=== PATIENT | female | born 1955 | race Caucasian/White ===

== ENCOUNTER 2022-06-24 22:50 | Inpatient (IN) ==
--- NOTE | 2022-06-24 23:42 | DR.URINEF ---
HPI Time Seen Time Seen by Provider: 06/24/22 23:29 PCP Primary Care Physician: [facility] HPI Comment HPI Comment: Pt accomanied by daughter .According to her patient has had at least 4 different antibiotics without improvement of her UTI.she was advised by her FP to bring patient to ER for evaluation .Hence the visit .pt herself ind icates that she experiences burning on urination intermittently.has some urgency and frequency ..Pt has been eating and drinking well according to daughter who is patients caregiver Complaint Chief Complaint Doctors Comments: problem with urination Chief Complaint:: pt c/o burning with urination, difficulty urinating, daughter reports pt has had 4 rounds of PO antibiotics prescribed by her PCP, states PCP's office called today and instructed her to take pt to ER d/t UTI, also c/o "thrush" in mouth COVID-19 Coronavirus risk:travel/contact w/high risk person: No Has patient experienced Coronavirus symptoms: No Reviewed Nurses Notes Reviewed: Yes Source History Provided: Patient and Family Member Mode of Arrival Mode of Arrival: Wheelchair Timing Onset of Chief Complaint: 04/24/22 Duration Duration: Since Onset Duration: Months Context History of: UTI Quality Pain is: Burning Severity Pain: Mild Inability to Void: Mild Location Pain Location: Suprapubic Associated Signs and Symptoms Associated signs and symptoms: Fever and Abdominal Pain PMH PMH Past Medical History: Yes Past Medical History: Dyslipidemia, GERD and Hypertension Past Medical History Comment: IBS Past Surgical History: Yes Surgical History: Cholecystectomy, Hysterectomy, Ortho Surgery and Tonsillectomy Past Surgical History Comment: hernia repair, bladder bx, uterine prolapse repair Family History History of Family Medical Conditions: No Social History Does patient currently use any type of tobacco product: No Have you used tobacco products in the last 12 months: No Type of Tobacco Use: None Alcohol Use: None Do you use any recreational Drugs:: No Lives With: Family Lives Where: Home Travel Risk Coronavirus risk:travel/contact w/high risk person: No Has patient experienced Coronavirus symptoms: No Infectious screening Have you traveled outside the country in the last 6 months?: No Isolation: Standard ROS Review of Systems Constitutional: Fever Eyes: No Symptoms Reported ENTM: No Symptoms Reported Respiratoy: No Symptoms Reported Cardiovascular: No Symptoms Reported Gastrointestinal/Abdominal: See HPI Genitourinary: Dysuria and Frequency Neurological: No Symptoms Reported Musculoskeletal: Joint Pain Integumentary: Dryness Hematologic/Lymphatic: No Symptoms Reported Endocrine: No Symptoms Reported Psychiatric: No Symptoms Reported PE Vital Signs Vitals: Temperature 99.1 F Pulse Rate 113 Respiratory Rate 20 Blood Pressure 133/76 O2 Sat by Pulse Oximetry 98 General General Appearance: Alert and In No Apparent Distress Head Head Exam: Other (temporal wasting cachectic ) Eyes Eye exam: Normal Appearance, PERRL and EOMI ENT ENT Exam: Mucous Membranes Dry Neck Neck Exam: Normal Inspection Chest Chest Inspection: Normal Inspection Respiratory Respiratory Exam: Normal Lung Sounds Bilat Respiratory Exam: Bilateral: Clear to Auscultation Cardiovascular Cardiovascular Exam: +S1 and +S2 Abdominal Exam Abdominal Exam: Normal Bowel Sounds, Soft and Tenderness Abdominal Tenderness: Suprapubic Extremities Extremities Exam: Normal Inspection Neurologic Neurological Exam: Alert Skin Skin Exam: Dry MDM Differential Diagnosis Differential Diagnosis: UTI Other Differential Diagnosis: sepsis,cachectic , COURSE Treatment Treatment: labs ROR Labs Reviewed Laboratory Results Reviewed?: Yes Result Diagrams: 06/24/22 23:40 06/24/22 23:40 Laboratory: WBC 9.5 X10^3/uL (3.6-10.0) 06/24/22 23:40 RBC 3.12 X10^6/uL (3.5-5.4) L 06/24/22 23:40 Hgb 8.5 g/dL (12.0-16.0) L 06/24/22 23:40 Hct 25.6 % (36.0-47.0) L 06/24/22 23:40 MCV 82.2 fL (80.0-100.0) 06/24/22 23:40 MCH 27.2 pg (27.0-34.0) 06/24/22 23:40 MCHC 33.0 g/dL (33.0-35.0) 06/24/22 23:40 RDW 36.0 % (11.6-16.5) H 06/24/22 23:40 Plt Count 254 X10^3/uL (150.0-450.0) 06/24/22 23:40 Plt Count Comment Adequate (ADEQUATE) 06/24/22 23:40 MPV 7.1 fL (7.4-11.0) L 06/24/22 23:40 Neut % (Auto) 50.6 % (42.0-75.0) 06/24/22 23:40 Lymph % (Auto) 33.9 % (21.0-51.0) 06/24/22 23:40 [place] % (Auto) 15.1 % (0.0-13.0) H 06/24/22 23:40 Eos % (Auto) 0.0 % (0.9-2.9) L 06/24/22 23:40 Baso % (Auto) 0.4 % (0.2-1.0) 06/24/22 23:40 Neut # (Auto) 4.8 x10^3/uL (2.2-4.8) 06/24/22 23:40 Lymph # (Auto) 3.2 X10^3/uL (1.3-2.9) H 06/24/22 23:40 [place] # (Auto) 1.4 x10^3/uL (0.3-0.8) H 06/24/22 23:40 Eos # (Auto) 0.0 x10^3/uL (0.0-0.2) 06/24/22 23:40 Baso # (Auto) 0.0 X10^3/uL (0.0-0.1) 06/24/22 23:40 Absolute Nucleated RBC 0.2 /100WBC 06/24/22 23:40 Plt Morphology Comment Normal (NORMAL) 06/24/22 23:40 RBC Morphology Abnormal (NORMAL) A 06/24/22 23:40 Dimorphic RBCs Present 06/24/22 23:40 Hypochromasia Slight A 06/24/22 23:40 Poikilocytosis 1+ A 06/24/22 23:40 Anisocytosis 3+ A 06/24/22 23:40 Target Cells Present 06/24/22 23:40 Ovalocytes Present 06/24/22 23:40 Will Cells Present 06/24/22 23:40 Schistocytes Present 06/24/22 23:40 Sodium 127 mmol/L (136-145) L 06/24/22 23:40 Corrected Sodium TNP 06/24/22 23:40 Potassium 5.2 mmol/L (3.5-5.1) H 06/24/22 23:40 Chloride 96 mmol/L (98-107) L 06/24/22 23:40 Carbon Dioxide 17.2 mmol/L (21-32) L 06/24/22 23:40 BUN 37 mg/dL (7-18) H 06/24/22 23:40 Creatinine 1.88 mg/dL (0.55-1.02) H 06/24/22 23:40 Est GFR (MDRD) Af Amer 34 (>60) L 06/24/22 23:40 Est GFR (MDRD) Non-Af 28 (>60) L 06/24/22 23:40 Glucose 74 mg/dL (65-99) 06/24/22 23:40 Lactic Acid 0.9 mmol/L (0.4-2.0) 06/24/22 23:40 Calcium 7.4 mg/dL (8.5-10.1) L 06/24/22 23:40 Corrected Calcium 8.6 mg/dL (8.5-10.1) 06/24/22 23:40 Total Bilirubin 0.40 mg/dL (0.2-1.0) 06/24/22 23:40 AST 42 Units/L (15-37) H 06/24/22 23:40 ALT 39 Units/L (12-78) 06/24/22 23:40 Alkaline Phosphatase 189 Units/L (46-116) H 06/24/22 23:40 Total Protein 5.9 g/dL (6.4-8.2) L 06/24/22 23:40 Albumin 2.5 g/dL (3.4-5.0) L 06/24/22 23:40 Globulin 3.4 g/dL (2.5-4.5) 06/24/22 23:40 Albumin/Globulin Ratio 0.7 Ratio (1.1-2.1) L 06/24/22 23:40 Specimen Type Clean catch urine 06/24/22 23:20 Urine Color Yellow (YELLOW) 06/24/22 23:20 Urine Appearance Clear (CLEAR) 06/24/22 23: Urine pH 6.0 (5.0 - 8.0) 06/24/22 23:20 Ur Specific [place] 1.015 (1.000-1.030) 06/24/22 23:20 Urine Protein 2+ (NEGATIVE) 06/24/22 23:20 Urine Glucose (UA) Negative (NEGATIVE) 06/24/22 23:20 Urine Ketones Negative (NEGATIVE) 06/24/22 23:20 Urine Blood 3+ (NEGATIVE) 06/24/22 23:20 Urine Nitrite Negative (NEGATIVE) 06/24/22 23:20 Urine Bilirubin 1+ (NEGATIVE) 06/24/22 23:20 Urine Urobilinogen Normal (NORMAL) 06/24/22 23:20 Ur Leukocyte Esterase 2+ (NEGATIVE) 06/24/22 23:20 Urine RBC 5-10 /HPF (0-3) A 06/24/22 23:20 Urine WBC 30-50 /HPF (0-5) A 06/24/22 23:20 Ur Squamous Epith Cells Few /HPF (NEGATIVE) 06/24/22 23:20 Urine Bacteria 1+ /HPF (NEGATIVE) 06/24/22 23:20 Ur Culture Indicated? Yes/culture set up 06/24/22 23:20 Opioid Opioid Risk Tool Age ( box if 16-45): No Total: 0 Total Score Risk Category: Low Risk Copyright: Quintin MARTÍNEZ predicting aberrant behaviors Discharge Plan Diagnosis Discharge Problem: Acute UTI, Acute hyponatremia, Acute renal failure, Anemia, Cachexia Discharge Plan Patient Disposition: 09 ADMITTED INPATIENT Condition: Stable Prescriptions: Continued simvastatin 10 mg tablet 1 tab PO QPM pramipexole 0.25 mg tablet 1 tab PO QPM Discontinued Elmiron 100 mg capsule 1 cap PO TID tizanidine 4 mg tablet 1 tab PO BID sucralfate 1 gram tablet 1 tab PO TID Label Comments: [NO ORIGINAL SIG] ondansetron HCl 4 mg tablet 1 tab PO Q8H PRN cyproheptadine 4 mg tablet 1 tab PO BID hydrocodone-acetaminophen 7.5-325 mg tablet 1 tab PO QID PRN pantoprazole 40 mg tablet,delayed release (DR/EC) 1 tab PO BID hydrochlorothiazide 25 mg tablet 1 tab PO DAILY Label Comments: [NO ORIGINAL SIG] levocetirizine 5 mg tablet 1 tab PO QDAY Health Concerns: Post Hospitalization: new medications and changes needed to prevent readmission or further decline. Pt educated and given instructions on all concerns. Plan of Treatment: Continue with present treatment and follow up plan. Pt is to keep follow up appointment as instructed and take medications as ordered. Orders to Discharge Patient Discharge Orders: Discharge (Routine); Ordered 06/25/22 Ordered By: Isaiah Doad Transfer (Routine); Ordered 06/25/22 Ordered By: Isaiah Chong Follow ups/Referrals Follow ups/Referrals: NFD,None [Primary Care Provider] - 3 days Instructions Stand Alone Forms: [facility], Patient Portal, Social Distancing ADDITIONAL NOTES Additional Notes Additional Notes: anemia ,stage 4 renal failure,hyperkalemia ,uti,hyponatremia,cachexia .spoke with Dr Nicholas agreed to admit patient
[2022-06-25 00:04] LABS: HEMOGLOBIN 8.5 g/dL (12.0-16.0)
[2022-06-25 00:05] LABS: BILIRUBIN,URINE 1+ (NEGATIVE); BLOOD/HEMOGLOBIN,URINE 3+ (NEGATIVE); GLUCOSE, URINE NEGATIVE (NEGATIVE); KETONES,URINE NEGATIVE (NEGATIVE); LEUKOCYTE ESTERASE ,URINE 2+ (NEGATIVE); NITRITES,URINE NEGATIVE (NEGATIVE); PROTEIN,URINE 2+ (NEGATIVE); UROBILINOGEN,URINE NORMAL (NORMAL)
[2022-06-25 00:07] LABS: BASOPHILS % (AUTO) 0.4 % (0.2-1.0); HEMATOCRIT 25.6 % (36.0-47.0); LYMPHOCYTES # (AUTO) 3.2 X10^3/uL (1.3-2.9); LYMPHOCYTES % (AUTO) 33.9 % (21.0-51.0); MEAN CORPUSCULAR HEMOGLOBIN 27.2 pg (27.0-34.0); MEAN CORPUSCULAR VOLUME 82.2 fL (80.0-100.0); MEAN PLATELET VOLUME 7.1 fL (7.4-11.0); MONOCYTES # (AUTO) 1.4 x10^3/uL (0.3-0.8); MONOCYTES % (AUTO) 15.1 % (0.0-13.0); NEUTROPHILS # (AUTO) 4.8 x10^3/uL (2.2-4.8); NEUTROPHILS % (AUTO) 50.6 % (42.0-75.0); RED BLOOD COUNT 3.12 X10^6/uL (3.5-5.4); WHITE BLOOD COUNT 9.5 X10^3/uL (3.6-10.0)
[2022-06-25 00:14] LABS: ALANINE AMINOTRANSFERASE 39 Units/L (12-78); ALBUMIN 2.5 g/dL (3.4-5.0); ALKALINE PHOSPHATASE 189 Units/L (46-116); ASPARTATE AMINO TRANSFERASE 42 Units/L (15-37); BLOOD UREA NITROGEN 37 mg/dL (7-18); CALCIUM 7.4 mg/dL (8.5-10.1); CARBON DIOXIDE 17.2 mmol/L (21-32); CHLORIDE 96 mmol/L (98-107); COR CA(FOR HYPOALB) 8.6 mg/dL (8.5-10.1); CREATININE 1.88 mg/dL (0.55-1.02); SODIUM 127 mmol/L (136-145); TOTAL PROTEIN 5.9 g/dL (6.4-8.2); eGFR NON BLACK RACES 28 (>60)
[2022-06-25 00:15] LABS: APPEARANCE,URINE CLEAR (CLEAR); COLOR,URINE YELLOW (YELLOW)
[2022-06-25 00:16] LABS: BACTERIA,URINE 1+ /HPF (NEGATIVE); SQUAMOUS EPITHELIAL CELL,UR FEW /HPF (NEGATIVE)
[2022-06-25 00:17] LABS: LACTIC ACID 0.9 mmol/L (0.4-2.0)
[2022-06-25 00:30] LABS: PLATELET MORPHOLOGY COMMENT NORMAL (NORMAL)
[2022-06-25] MEDS ORDERED: NS 1,000 ML IV 1,000 ML IV ONE ×2 (00:30→01:24)
[2022-06-25 00:31] LABS: ANISOCYTOSIS 3+; BURR CELLS PRESENT; HYPOCHROMASIA SLIGHT; OVALOCYTES PRESENT; POIKILOCYTOSIS 1+; SCHISTOCYTES PRESENT; TARGET CELLS PRESENT
[2022-06-25] MEDS ORDERED: NS 1,000 ML IV 1,000 ML ONE (00:32)
[2022-06-25 02:09] VITALS: BMI 19.8
[2022-06-25] MEDS: MACROBID CAP 100 MG EXT REL PO SCH ×2 (02:24→10:13)
[2022-06-25 06:18] LABS: BASOPHILS % (AUTO) 0.4 % (0.2-1.0); LYMPHOCYTES # (AUTO) 1.2 X10^3/uL (1.3-2.9); LYMPHOCYTES % (AUTO) 22.4 % (21.0-51.0); MEAN CORPUSCULAR HEMOGLOBIN 27.4 pg (27.0-34.0); MEAN CORPUSCULAR VOLUME 83.2 fL (80.0-100.0); MEAN PLATELET VOLUME 7.1 fL (7.4-11.0); MONOCYTES # (AUTO) 0.7 x10^3/uL (0.3-0.8); MONOCYTES % (AUTO) 13.2 % (0.0-13.0); NEUTROPHILS # (AUTO) 3.4 x10^3/uL (2.2-4.8); RED BLOOD COUNT 2.39 X10^6/uL (3.5-5.4); RED CELL DISTRIBUTION WIDTH 36.4 % (11.6-16.5); WHITE BLOOD COUNT 5.4 X10^3/uL (3.6-10.0)
[2022-06-25 06:19] LABS: HEMATOCRIT 19.9 % (36.0-47.0); HEMOGLOBIN 6.5 g/dL (12.0-16.0)
[2022-06-25 06:28] LABS: ALANINE AMINOTRANSFERASE 26 Units/L (12-78); ALBUMIN 1.7 g/dL (3.4-5.0); ALKALINE PHOSPHATASE 130 Units/L (46-116); ASPARTATE AMINO TRANSFERASE 30 Units/L (15-37); BLOOD UREA NITROGEN 29 mg/dL (7-18); CALCIUM 6.4 mg/dL (8.5-10.1); CARBON DIOXIDE 15.2 mmol/L (21-32); CHLORIDE 105 mmol/L (98-107); COR CA(FOR HYPOALB) 8.2 mg/dL (8.5-10.1); CREATININE 1.38 mg/dL (0.55-1.02); SODIUM 132 mmol/L (136-145); TOTAL PROTEIN 4.3 g/dL (6.4-8.2); eGFR NON BLACK RACES 40 (>60)
[2022-06-25 06:51] LABS: ANISOCYTOSIS 3+; BURR CELLS PRESENT; OVALOCYTES PRESENT; PLATELET MORPHOLOGY COMMENT NORMAL (NORMAL); POIKILOCYTOSIS 1+; SCHISTOCYTES PRESENT; TARGET CELLS PRESENT
[2022-06-25] MEDS ORDERED: MERREM VIAL IVP SCH (12:00)
[2022-06-25] MEDS ORDERED: PHARMACY CONSULT - VANCOMYCIN XX SCH (12:00)
[2022-06-25] MEDS: MERREM PREMIX IV 500 MG 500 MG/50 ML BAG IV SCH ×2 (12:30→20:48)
[2022-06-25] MEDS ORDERED: VANCOMYCIN IV *PREMIX 750 mg/150 ML BAG 750 MG/150 ML PIGGYBACK IV SCH (13:00)
[2022-06-25] MEDS: ZOFRAN INJ 4 MG VIAL IVP PRN (13:41)
[2022-06-25] MEDS: PERIACTIN TAB 4 MG PO SCH ×2 (13:42→20:40)
[2022-06-25] MEDS: PROTONIX TAB 40 MG PO SCH ×2 (13:42→20:39)
[2022-06-25] MEDS: FOLIC ACID TAB 1 MG PO SCH (13:43)
[2022-06-25] MEDS ORDERED: NS 100 ML IV 100 ML ONE ×2 (14:46→17:37)
[2022-06-25] MEDS ORDERED: BUTT CREAM (COMPOUND) TOP PRN (15:05)
[2022-06-25] MEDS ORDERED: BUTT CREAM (COMPOUND) ONE (15:08)
[2022-06-25] MEDS: MIRAPEX TAB 0.25 MG PO SCH (20:39)
[2022-06-25] MEDS: NORCO 7.5/325 MG TAB PO PRN (20:40)
[2022-06-25] MEDS: ZOCOR TAB 10 MG PO SCH (20:40)
[2022-06-25] MEDS ORDERED: NS 50 ML IV 50 ML IV ONE (20:40)
[2022-06-25] MEDS ORDERED: MERREM VIAL ONE (20:41)
[2022-06-25 21:58] LABS: HEMATOCRIT 33.6 % (36.0-47.0)
[2022-06-25 22:00] LABS: HEMOGLOBIN 11.3 g/dL (12.0-16.0)
[2022-06-25] MEDS: NYSTATIN SUSP PO SCH (23:48)
[2022-06-26 06:17] LABS: BASOPHILS % (AUTO) 0.2 % (0.2-1.0); HEMATOCRIT 31.5 % (36.0-47.0); HEMOGLOBIN 10.9 g/dL (12.0-16.0); LYMPHOCYTES # (AUTO) 1.2 X10^3/uL (1.3-2.9); LYMPHOCYTES % (AUTO) 18.6 % (21.0-51.0); MEAN CORPUSCULAR HEMOGLOBIN 28.6 pg (27.0-34.0); MEAN CORPUSCULAR HGB CONC 34.5 g/dL (33.0-35.0); MEAN CORPUSCULAR VOLUME 82.9 fL (80.0-100.0); MEAN PLATELET VOLUME 6.8 fL (7.4-11.0); MONOCYTES # (AUTO) 1.1 x10^3/uL (0.3-0.8); MONOCYTES % (AUTO) 16.4 % (0.0-13.0); NEUTROPHILS # (AUTO) 4.2 x10^3/uL (2.2-4.8); NEUTROPHILS % (AUTO) 64.8 % (42.0-75.0); RED CELL DISTRIBUTION WIDTH 28.7 % (11.6-16.5); WHITE BLOOD COUNT 6.5 X10^3/uL (3.6-10.0)
[2022-06-26 06:31] LABS: ALANINE AMINOTRANSFERASE 27 Units/L (12-78); ALKALINE PHOSPHATASE 154 Units/L (46-116); ASPARTATE AMINO TRANSFERASE 31 Units/L (15-37); BLOOD UREA NITROGEN 19 mg/dL (7-18); CALCIUM 6.9 mg/dL (8.5-10.1); CARBON DIOXIDE 15.1 mmol/L (21-32); CHLORIDE 109 mmol/L (98-107); COR CA(FOR HYPOALB) 8.5 mg/dL (8.5-10.1); CREATININE 0.92 mg/dL (0.55-1.02); SODIUM 134 mmol/L (136-145); eGFR NON BLACK RACES > 60 (>60)
[2022-06-26 06:59] LABS: ANISOCYTOSIS 3+; BURR CELLS 1+; OVALOCYTES SLIGHT; PLATELET MORPHOLOGY COMMENT NORMAL (NORMAL); POIKILOCYTOSIS 1+; TARGET CELLS 1+
[2022-06-26] MEDS: ZOFRAN INJ 4 MG VIAL IVP PRN ×3 (08:33→21:26)
[2022-06-26] MEDS: PROTONIX TAB 40 MG PO SCH ×2 (08:33→21:16)
[2022-06-26] MEDS: MERREM VIAL 500 MG in NS 50 ML IV 50 ML IV SCH ×2 (08:33→21:27)
[2022-06-26] MEDS: PERIACTIN TAB 4 MG PO SCH ×2 (08:34→21:16)
[2022-06-26] MEDS: NYSTATIN SUSP PO SCH ×4 (08:34→21:17)
[2022-06-26] MEDS: FOLIC ACID TAB 1 MG PO SCH (08:34)
[2022-06-26] MEDS ORDERED: VANCOMYCIN IV *PREMIX 750 mg/150 ML BAG 750 MG/150 ML PIGGYBACK IV SCH (09:00)
[2022-06-26] MEDS ORDERED: NS 250 ML IV 250 ML IV ONE (09:22)
[2022-06-26] MEDS: NORCO 7.5/325 MG TAB PO PRN ×2 (09:45→21:26)
[2022-06-26] MEDS: TOPROL XL PO SCH (09:50)
[2022-06-26] MEDS ORDERED: NS 50 ML IV 0 ML IV ONE (20:59)
[2022-06-26] MEDS: MIRAPEX TAB 0.25 MG PO SCH (21:16)
[2022-06-26] MEDS: ZOCOR TAB 10 MG PO SCH (21:17)
[2022-06-27 06:15] LABS: BASOPHILS % (AUTO) 0.2 % (0.2-1.0); HEMATOCRIT 34.9 % (36.0-47.0); HEMOGLOBIN 11.7 g/dL (12.0-16.0); LYMPHOCYTES # (AUTO) 1.5 X10^3/uL (1.3-2.9); LYMPHOCYTES % (AUTO) 19.6 % (21.0-51.0); MEAN CORPUSCULAR HGB CONC 33.6 g/dL (33.0-35.0); MEAN CORPUSCULAR VOLUME 83.5 fL (80.0-100.0); MONOCYTES # (AUTO) 1.6 x10^3/uL (0.3-0.8); MONOCYTES % (AUTO) 21.2 % (0.0-13.0); NEUTROPHILS # (AUTO) 4.4 x10^3/uL (2.2-4.8); RED BLOOD COUNT 4.18 X10^6/uL (3.5-5.4); RED CELL DISTRIBUTION WIDTH 30.1 % (11.6-16.5); WHITE BLOOD COUNT 7.5 X10^3/uL (3.6-10.0)
[2022-06-27 06:20] LABS: BLOOD UREA NITROGEN 11 mg/dL (7-18); CALCIUM 7.1 mg/dL (8.5-10.1); CARBON DIOXIDE 15.7 mmol/L (21-32); CHLORIDE 109 mmol/L (98-107); CREATININE 0.76 mg/dL (0.55-1.02); SODIUM 138 mmol/L (136-145); eGFR NON BLACK RACES > 60 (>60)
[2022-06-27 06:57] LABS: BAND NEUTROPHILS % 1 % (0-10); PLATELET MORPHOLOGY COMMENT NORMAL (NORMAL)
[2022-06-27 06:58] LABS: ANISOCYTOSIS 3+; POIKILOCYTOSIS 1+; TARGET CELLS 1+
[2022-06-27 06:59] LABS: BURR CELLS 1+; OVALOCYTES SLIGHT; SCHISTOCYTES SLIGHT
[2022-06-27] MEDS: MERREM VIAL 500 MG in NS 50 ML IV 50 ML IV SCH ×2 (09:19→21:11)
[2022-06-27] MEDS: PROTONIX TAB 40 MG PO SCH ×2 (09:24→21:10)
[2022-06-27] MEDS: NYSTATIN SUSP PO SCH ×4 (09:24→21:11)
[2022-06-27] MEDS: TOPROL XL PO SCH (09:24)
[2022-06-27] MEDS: PERIACTIN TAB 4 MG PO SCH ×2 (09:24→21:10)
[2022-06-27] MEDS: FOLIC ACID TAB 1 MG PO SCH (09:24)
[2022-06-27] MEDS: ZOFRAN INJ 4 MG VIAL IVP PRN ×2 (10:00→17:43)
[2022-06-27] MEDS: NORCO 7.5/325 MG TAB PO PRN ×2 (10:16→17:43)
[2022-06-27 11:57] LABS: ALANINE AMINOTRANSFERASE 31 Units/L (12-78); ALBUMIN 2.1 g/dL (3.4-5.0); ALKALINE PHOSPHATASE 165 Units/L (46-116); ASPARTATE AMINO TRANSFERASE 29 Units/L (15-37); COR CA(FOR HYPOALB) 8.6 mg/dL (8.5-10.1); TOTAL PROTEIN 5.4 g/dL (6.4-8.2)
--- NOTE | 2022-06-27 15:23 | RAD ---
HISTORYLT SHOULDER PAIN.brCLEARANCE FOR PHYS THERAPY Relevant Clinical InformationSTUDYSHOULDER, LEFTCOMPARISONNoneFINDINGSThere is a fracture at the distal and of the clavicle. There is lucency in this area raising concern for a pathologic fracture. There is potentially a lucency in the scapula as well.IMPRESSION1. Fracture in the distal clavicle. 2. Question metastatic bone disease. Consider correlation with whole-body bone scan.Electronically signed by: Brennan Vidales (Jun 27, 2022 15:20:49)
[2022-06-27] MEDS: MIRAPEX TAB 0.25 MG PO SCH (21:10)
[2022-06-27] MEDS: ZOCOR TAB 10 MG PO SCH (21:10)
[2022-06-28 06:19] LABS: BASOPHILS % (AUTO) 0.5 % (0.2-1.0); HEMATOCRIT 35.3 % (36.0-47.0); HEMOGLOBIN 11.9 g/dL (12.0-16.0); LYMPHOCYTES # (AUTO) 2.1 X10^3/uL (1.3-2.9); LYMPHOCYTES % (AUTO) 30.7 % (21.0-51.0); MEAN CORPUSCULAR HEMOGLOBIN 28.4 pg (27.0-34.0); MEAN CORPUSCULAR HGB CONC 33.6 g/dL (33.0-35.0); MEAN CORPUSCULAR VOLUME 84.6 fL (80.0-100.0); MEAN PLATELET VOLUME 6.9 fL (7.4-11.0); MONOCYTES # (AUTO) 1.5 x10^3/uL (0.3-0.8); MONOCYTES % (AUTO) 21.8 % (0.0-13.0); NEUTROPHILS # (AUTO) 3.2 x10^3/uL (2.2-4.8); RED BLOOD COUNT 4.18 X10^6/uL (3.5-5.4); RED CELL DISTRIBUTION WIDTH 30.6 % (11.6-16.5); WHITE BLOOD COUNT 6.7 X10^3/uL (3.6-10.0)
[2022-06-28 07:00] LABS: ALANINE AMINOTRANSFERASE 29 Units/L (12-78); ALBUMIN 2.1 g/dL (3.4-5.0); ALKALINE PHOSPHATASE 169 Units/L (46-116); ASPARTATE AMINO TRANSFERASE 41 Units/L (15-37); BLOOD UREA NITROGEN 10 mg/dL (7-18); CALCIUM 7.1 mg/dL (8.5-10.1); CARBON DIOXIDE 17.3 mmol/L (21-32); CHLORIDE 107 mmol/L (98-107); COR CA(FOR HYPOALB) 8.6 mg/dL (8.5-10.1); CREATININE 0.69 mg/dL (0.55-1.02); SODIUM 135 mmol/L (136-145); TOTAL PROTEIN 5.5 g/dL (6.4-8.2); eGFR NON BLACK RACES > 60 (>60)
[2022-06-28 07:43] LABS: ANISOCYTOSIS 3+; PLATELET MORPHOLOGY COMMENT NORMAL (NORMAL)
[2022-06-28 07:44] LABS: POIKILOCYTOSIS 1+
[2022-06-28 07:46] LABS: BURR CELLS 1+; OVALOCYTES SLIGHT; SCHISTOCYTES SLIGHT; TARGET CELLS 1+
[2022-06-28] MEDS ORDERED: PHARMACY COMMENT IV NR (08:30)
[2022-06-28] MEDS: MERREM VIAL 500 MG in NS 50 ML IV 50 ML IV SCH ×2 (09:20→21:08)
[2022-06-28] MEDS: ZOFRAN INJ 4 MG VIAL IVP PRN ×2 (09:25→21:52)
[2022-06-28] MEDS: PROTONIX TAB 40 MG PO SCH ×2 (09:29→21:07)
[2022-06-28] MEDS: PERIACTIN TAB 4 MG PO SCH ×2 (09:29→21:07)
[2022-06-28] MEDS: FOLIC ACID TAB 1 MG PO SCH (09:30)
[2022-06-28] MEDS: TOPROL XL PO SCH (09:30)
[2022-06-28] MEDS: NORCO 7.5/325 MG TAB PO PRN ×3 (09:30→22:29)
[2022-06-28] MEDS: NYSTATIN SUSP PO SCH ×4 (09:31→21:07)
[2022-06-28] MEDS: NS IV SCH ×3 (12:23→21:48)
[2022-06-28] MEDS: TOBRAMYCIN SULFATE IV SCH ×3 (12:23→21:48)
--- NOTE | 2022-06-28 14:50 | NM ---
BONE SCAN WHOLE BODYCLINICAL INDICATION: FRACTURE DISTAL CLAVICLE, LEFT, RAD REPORT RECOMMENDS WHOLE BODY BONE SCANPROCEDURE: Approximately 2-4 hours following intravenous administration of 21.7 mCi of [id number], whole body delayed planar images were obtained from the anterior and posterior projections.COMPARISON:NoneFINDINGS:There is normal by distribution of the radiotracer within the axial and appendicular skeleton. Focal uptake in the region of the distal left clavicle and shoulder consistent with patient's known fracture.There is normal by distribution of the radiotracer within the genitourinary system and soft tissues.IMPRESSION:1.No evidence of metastatic disease.Electronically signed by: JACQUES MARIA (Jun 28, 2022 14:49:26)
[2022-06-28] MEDS: MIRAPEX TAB 0.25 MG PO SCH (21:07)
[2022-06-28] MEDS: ZOCOR TAB 10 MG PO SCH (21:07)
[2022-06-29] MEDS ORDERED: PHARMACY COMMENT IV NR ×2 (05:30→07:30)
[2022-06-29 06:32] LABS: BASOPHILS % (AUTO) 0.4 % (0.2-1.0); HEMATOCRIT 32.3 % (36.0-47.0); HEMOGLOBIN 10.8 g/dL (12.0-16.0); LYMPHOCYTES # (AUTO) 1.4 X10^3/uL (1.3-2.9); LYMPHOCYTES % (AUTO) 28.4 % (21.0-51.0); MEAN CORPUSCULAR HEMOGLOBIN 28.4 pg (27.0-34.0); MEAN CORPUSCULAR HGB CONC 33.3 g/dL (33.0-35.0); MEAN CORPUSCULAR VOLUME 85.3 fL (80.0-100.0); MEAN PLATELET VOLUME 7.2 fL (7.4-11.0); MONOCYTES % (AUTO) 19.9 % (0.0-13.0); NEUTROPHILS # (AUTO) 2.5 x10^3/uL (2.2-4.8); NEUTROPHILS % (AUTO) 51.3 % (42.0-75.0); RED BLOOD COUNT 3.79 X10^6/uL (3.5-5.4); RED CELL DISTRIBUTION WIDTH 29.7 % (11.6-16.5)
[2022-06-29 06:34] LABS: ALANINE AMINOTRANSFERASE 25 Units/L (12-78); ALBUMIN 1.8 g/dL (3.4-5.0); ALKALINE PHOSPHATASE 141 Units/L (46-116); ASPARTATE AMINO TRANSFERASE 39 Units/L (15-37); BLOOD UREA NITROGEN 7 mg/dL (7-18); CALCIUM 7.2 mg/dL (8.5-10.1); CARBON DIOXIDE 20.9 mmol/L (21-32); CHLORIDE 108 mmol/L (98-107); CREATININE 0.66 mg/dL (0.55-1.02); SODIUM 136 mmol/L (136-145); TOTAL PROTEIN 4.7 g/dL (6.4-8.2); eGFR NON BLACK RACES > 60 (>60)
[2022-06-29 07:45] LABS: PLATELET MORPHOLOGY COMMENT NORMAL (NORMAL)
[2022-06-29 07:46] LABS: ANISOCYTOSIS 3+; BURR CELLS 1+; OVALOCYTES SLIGHT; POIKILOCYTOSIS 1+; SCHISTOCYTES SLIGHT; TARGET CELLS 1+
[2022-06-29 07:47] LABS: CREATININE 0.66 mg/dL (0.55-1.02)
[2022-06-29 07:51] LABS: TOBRAMYCIN,TROUGH 2.3 ug/mL (0-2)
[2022-06-29] MEDS: ZOFRAN INJ 4 MG VIAL IVP PRN ×2 (08:48→19:42)
[2022-06-29] MEDS: TOPROL XL PO SCH (08:48)
[2022-06-29] MEDS: MERREM VIAL 500 MG in NS 50 ML IV 50 ML IV SCH ×2 (08:48→21:06)
[2022-06-29] MEDS: PROTONIX TAB 40 MG PO SCH ×2 (08:49→21:06)
[2022-06-29] MEDS: FOLIC ACID TAB 1 MG PO SCH (08:49)
[2022-06-29] MEDS: PERIACTIN TAB 4 MG PO SCH ×2 (08:49→21:06)
[2022-06-29] MEDS: NORCO 7.5/325 MG TAB PO PRN ×3 (08:52→22:20)
[2022-06-29] MEDS: TOBRAMYCIN SULFATE IV SCH ×2 (10:37→21:07)
[2022-06-29] MEDS: NS IV SCH ×2 (10:37→21:07)
[2022-06-29] MEDS: NYSTATIN SUSP PO SCH ×4 (11:54→21:07)
--- NOTE | 2022-06-29 16:08 | PCM.PROG ---
Progress Note Progress Note for Day of Date of Exam: 06/29/22 Subjective Subjective: Patient reports he is doing well this morning. She does asked to be able to take her tizanidine at bedtime so I will order that for her. 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 Her primary care physician Dr. Fran Nicholas which is to treat her for 7 days which would put her discharge at the beginning of next week. We will continue with her IV antibiotic therapy and repeat routine labs again the day after tomorrow. Past Medical Family Social History Allergies: Allergies amlodipine Allergy (Verified 06/24/22 23:34) ceftriaxone Allergy (Verified 06/24/22 23:34) celecoxib [From Celebrex] Allergy (Verified 06/24/22 23:34) citalopram Allergy (Verified 06/24/22 23:34) dexlansoprazole [From Dexilant] Allergy (Verified 06/24/22 23:34) diclofenac Allergy (Verified 06/24/22 23:34) estrogens, conjugated [From Premarin] Allergy (Verified 06/24/22 23:34) fesoterodine [From Toviaz] Allergy (Verified 06/24/22 23:34) fluoxetine Allergy (Verified 06/24/22 23:34) hydroxychloroquine Allergy (Verified 06/24/22 23:34) hydroxyzine Allergy (Verified 06/24/22 23:34) meloxicam Allergy (Verified 06/24/22 23:34) mirtazapine Allergy (Verified 06/24/22 23:34) neomycin Allergy (Verified 06/24/22 23:34) Penicillins Allergy (Verified 06/24/22 23:34) Review of Systems ROS: No change since H&P Vital Signs and I&O's Vital Signs: Temperature 98.2 F Pulse Rate [Right Brachial] 84 Pulse Rate 113 Respiratory Rate 18 Blood Pressure [Left Arm] 139/71 Blood Pressure [Right Arm] 135/81 Blood Pressure 133/76 O2 Sat by Pulse Oximetry 96 Intake and Output: Intake & Output 06/27/22 06/28/22 06/29/22 06/30/22 11:59 11:59 11:59 11:59 Intake Total 350 / 350 1780 / 1780 990 / 990 1240 / 1240 Balance 350 / 350 1780 / 1780 990 / 990 1240 / 1240 Physical Exam Oriented: Normal, Time, Person and Place Respiratory: Normal Cardiovascular: Normal Auscultation: Bowel Sounds: Normal Psychiatric: Normal Mood Description: Calm Speech Pattern: Clear and Appropriate Laboratory and Diagnostics Result Diagrams: 06/29/22 05:41 06/29/22 05:41 Labs: 06/24/22 23:20 Urine,Clean Catch Urine Culture - Final Pseudomonas Aeruginosa 06/24/22 23:40 Blood Blood Culture - Preliminary 06/24/22 23:50 Blood Blood Culture - Preliminary Laboratory WBC 5.0 X10^3/uL (3.6-10.0) 06/29/22 05:41 RBC 3.79 X10^6/uL (3.5-5.4) 06/29/22 05:41 Hgb 10.8 g/dL (12.0-16.0) L 06/29/22 05:41 Hct 32.3 % (36.0-47.0) L 06/29/22 05:41 MCV 85.3 fL (80.0-100.0) 06/29/22 05:41 MCH 28.4 pg (27.0-34.0) 06/29/22 05:41 MCHC 33.3 g/dL (33.0-35.0) 06/29/22 05:41 RDW 29.7 % (11.6-16.5) H 06/29/22 05:41 Plt Count 193 X10^3/uL (150.0-450.0) 06/29/22 05:41 Plt Count Comment Adequate (ADEQUATE) 06/29/22 05:41 MPV 7.2 fL (7.4-11.0) L 06/29/22 05:41 Neut % (Auto) 51.3 % (42.0-75.0) 06/29/22 05:41 Lymph % (Auto) 28.4 % (21.0-51.0) 06/29/22 05:41 [place] % (Auto) 19.9 % (0.0-13.0) H 06/29/22 05:41 Eos % (Auto) 0.0 % (0.9-2.9) L 06/29/22 05:41 Baso % (Auto) 0.4 % (0.2-1.0) 06/29/22 05:41 Neut # (Auto) 2.5 x10^3/uL (2.2-4.8) 06/29/22 05:41 Lymph # (Auto) 1.4 X10^3/uL (1.3-2.9) 06/29/22 05:41 [place] # (Auto) 1.0 x10^3/uL (0.3-0.8) H 06/29/22 05:41 Eos # (Auto) 0.0 x10^3/uL (0.0-0.2) 06/29/22 05:41 Baso # (Auto) 0.0 X10^3/uL (0.0-0.1) 06/29/22 05:41 Absolute Nucleated RBC 0.0 /100WBC 06/29/22 05:41 Total Counted 100 06/28/22 05:43 Neutrophils % (Manual) 48 % (39-76) 06/28/22 05:43 Band Neutrophils % 1 % (0-10) 06/27/22 05:23 Lymphocytes % (Manual) 30 % (13-43) 06/28/22 05:43 Monocytes % (Manual) 22 % (4-9) H 06/28/22 05:43 Eosinophils % (Manual) 1 % (0-6) 06/27/22 05:23 Plt Morphology Comment Normal (NORMAL) 06/29/22 05:41 RBC Morphology Abnormal (NORMAL) A 06/29/22 05:41 Dimorphic RBCs Present 06/29/22 05:41 Hypochromasia Slight A 06/24/22 23:40 Poikilocytosis 1+ A 06/29/22 05:41 Anisocytosis 3+ A 06/29/22 05:41 Target Cells 1+ A 06/29/22 05:41 Ovalocytes Slight A 06/29/22 05:41 Will Cells 1+ A 06/29/22 05:41 Acanthocytes (Spur) 1+ 06/29/22 05:41 Schistocytes Slight A 06/29/22 05:41 Sodium 136 mmol/L (136-145) 06/29/22 05:41 Corrected Sodium TNP 06/29/22 05:41 Potassium 4.5 mmol/L (3.5-5.1) 06/29/22 05:41 Chloride 108 mmol/L (98-107) H 06/29/22 05:41 Carbon Dioxide 20.9 mmol/L (21-32) L 06/29/22 05:41 BUN 7 mg/dL (7-18) 06/29/22 05:41 Creatinine 0.66 mg/dL (0.55-1.02) 06/29/22 05:41 Creatinine 0.66 mg/dL (0.55-1.02) 06/29/22 05:41 Est GFR (MDRD) Af Amer > 60 (>60) 06/29/22 05:41 Est GFR (MDRD) Non-Af > 60 (>60) 06/29/22 05:41 Glucose 90 mg/dL (65-99) 06/29/22 05:41 Lactic Acid 0.9 mmol/L (0.4-2.0) 06/24/22 23:40 Calcium 7.2 mg/dL (8.5-10.1) L 06/29/22 05:41 Corrected Calcium 9.0 mg/dL (8.5-10.1) 06/29/22 05:41 Iron 27 ug/dL (50-175) L 06/25/22 00:00 Transferrin 145 mg/dL (202-364) L 06/25/22 00:00 Ferritin 151 ng/mL (8-252) 06/25/22 00:00 Total Bilirubin 0.40 mg/dL (0.2-1.0) 06/29/22 05:41 AST 39 Units/L (15-37) H 06/29/22 05:41 ALT 25 Units/L (12-78) 06/29/22 05:41 Alkaline Phosphatase 141 Units/L (46-116) H 06/29/22 05:41 Total Protein 4.7 g/dL (6.4-8.2) L 06/29/22 05:41 Albumin 1.8 g/dL (3.4-5.0) L 06/29/22 05:41 Globulin 2.9 g/dL (2.5-4.5) 06/29/22 05:41 Albumin/Globulin Ratio 0.6 Ratio (1.1-2.1) L 06/29/22 05:41 Vitamin B12 1408 pg/mL (193-986) H 06/25/22 00:00 Folate 5.4 ng/mL (>8.6) L 06/25/22 00:00 TSH 3rd Generation 1.733 uIU/mL (0.358-3.74) 06/24/22 23:50 Specimen Type Clean catch urine 06/24/22 23:20 Urine Color Yellow (YELLOW) 06/24/22 23:20 Urine Appearance Clear (CLEAR) 06/24/22 23:20 Urine pH 6.0 (5.0 - 8.0) 06/24/22 23:20 Ur Specific [place] 1.015 (1.000-1.030) 06/24/22 23:20 Urine Protein 2+ (NEGATIVE) 06/24/22 23:20 Urine Glucose (UA) Negative (NEGATIVE) 06/24/22 23:20 Urine Ketones Negative (NEGATIVE) 06/24/22 23:20 Urine Blood 3+ (NEGATIVE) 06/24/22 23:20 Urine Nitrite Negative (NEGATIVE) 06/24/22 23:20 Urine Bilirubin 1+ (NEGATIVE) 06/24/22 23:20 Urine Urobilinogen Normal (NORMAL) 06/24/22 23:20 Ur Leukocyte Esterase 2+ (NEGATIVE) 06/24/22 23:20 Urine RBC 5-10 /HPF (0-3) A 06/24/22 23:20 Urine WBC 30-50 /HPF (0-5) A 06/24/22 23:20 Ur Squamous Epith Cells Few /HPF (NEGATIVE) 06/24/22 23:20 Urine Bacteria 1+ /HPF (NEGATIVE) 06/24/22 23:20 Ur Culture Indicated? Yes/culture set up 06/24/22 23:20 Tobramycin Peak 1.7 ug/mL (4-8) L 06/29/22 08:18 Tobramycin Trough 2.3 ug/mL (0-2) H* 06/29/22 05:41 Blood Type O POSITIVE 06/25/22 06:48 Antibody Screen Negative 06/25/22 06:48 Crossmatch See Detail 06/25/22 06:48 Plan (1) Acute UTI: Status: Acute Plan: Continue IV meropenem and IV tobramycin. (2) Muscle soreness: Status: Acute Plan: Tizanidine 4 mg at bedtime
[2022-06-29] MEDS: ZOCOR TAB 10 MG PO SCH (21:06)
[2022-06-29] MEDS: MIRAPEX TAB 0.25 MG PO SCH (21:06)
[2022-06-29] MEDS: ZANAFLEX PO SCH (21:06)
[2022-06-30] MEDS: NORCO 7.5/325 MG TAB PO PRN ×3 (06:28→20:44)
[2022-06-30 06:39] LABS: BASOPHILS % (AUTO) 0.8 % (0.2-1.0); HEMATOCRIT 30.8 % (36.0-47.0); HEMOGLOBIN 10.4 g/dL (12.0-16.0); LYMPHOCYTES # (AUTO) 1.5 X10^3/uL (1.3-2.9); LYMPHOCYTES % (AUTO) 28.6 % (21.0-51.0); MEAN CORPUSCULAR HEMOGLOBIN 28.6 pg (27.0-34.0); MEAN CORPUSCULAR HGB CONC 33.8 g/dL (33.0-35.0); MEAN CORPUSCULAR VOLUME 84.6 fL (80.0-100.0); MONOCYTES # (AUTO) 1.1 x10^3/uL (0.3-0.8); MONOCYTES % (AUTO) 21.5 % (0.0-13.0); NEUTROPHILS # (AUTO) 2.6 x10^3/uL (2.2-4.8); NEUTROPHILS % (AUTO) 49.1 % (42.0-75.0); RED BLOOD COUNT 3.64 X10^6/uL (3.5-5.4); RED CELL DISTRIBUTION WIDTH 29.3 % (11.6-16.5); WHITE BLOOD COUNT 5.3 X10^3/uL (3.6-10.0)
[2022-06-30 06:51] LABS: ALANINE AMINOTRANSFERASE 24 Units/L (12-78); ALBUMIN 1.7 g/dL (3.4-5.0); ALKALINE PHOSPHATASE 143 Units/L (46-116); ASPARTATE AMINO TRANSFERASE 37 Units/L (15-37); BLOOD UREA NITROGEN 7 mg/dL (7-18); CALCIUM 7.2 mg/dL (8.5-10.1); CARBON DIOXIDE 22.5 mmol/L (21-32); CHLORIDE 107 mmol/L (98-107); CREATININE 0.67 mg/dL (0.55-1.02); SODIUM 138 mmol/L (136-145); TOTAL PROTEIN 4.7 g/dL (6.4-8.2); eGFR NON BLACK RACES > 60 (>60)
[2022-06-30 07:11] LABS: ANISOCYTOSIS 3+; OVALOCYTES SLIGHT; PLATELET MORPHOLOGY COMMENT NORMAL (NORMAL); POIKILOCYTOSIS 1+; TARGET CELLS 1+
[2022-06-30 07:12] LABS: BURR CELLS 1+; SCHISTOCYTES SLIGHT
[2022-06-30] MEDS ORDERED: PHARMACY COMMENT IV NR ×3 (08:30→22:30)
[2022-06-30] MEDS: TOPROL XL PO SCH (09:10)
[2022-06-30] MEDS: MERREM VIAL 500 MG in NS 50 ML IV 50 ML IV SCH ×2 (09:10→20:47)
[2022-06-30] MEDS: NYSTATIN SUSP PO SCH ×4 (09:10→20:46)
[2022-06-30] MEDS: FOLIC ACID TAB 1 MG PO SCH (09:11)
[2022-06-30] MEDS: PERIACTIN TAB 4 MG PO SCH ×2 (09:11→20:42)
[2022-06-30] MEDS: PROTONIX TAB 40 MG PO SCH ×2 (09:11→20:45)
[2022-06-30] MEDS: TOBRAMYCIN SULFATE IV SCH ×2 (09:11→22:15)
[2022-06-30] MEDS: NS IV SCH ×2 (09:11→22:15)
[2022-06-30] MEDS: MORPHINE SULFATE INJ 2 MG INJ IVP PRN ×4 (09:40→23:05)
--- NOTE | 2022-06-30 16:22 | PCM.PROG ---
Progress Note Progress Note for Day of Date of Exam: 06/30/22 Subjective Subjective: Patient reports she is still feeling a little weak today she had no acute problems yesterday or last night. 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 Her primary care physician Dr. Fran Nicholas which wishes to treat her for 7 days which would put her discharge at the beginning of next week. We will continue with her IV antibiotic therapy at this time. Past Medical Family Social History Allergies: Allergies amlodipine Allergy (Verified 06/24/22 23:34) ceftriaxone Allergy (Verified 06/24/22 23:34) celecoxib [From Celebrex] Allergy (Verified 06/24/22 23:34) citalopram Allergy (Verified 06/24/22 23:34) dexlansoprazole [From Dexilant] Allergy (Verified 06/24/22 23:34) diclofenac Allergy (Verified 06/24/22 23:34) estrogens, conjugated [From Premarin] Allergy (Verified 06/24/22 23:34) fesoterodine [From Toviaz] Allergy (Verified 06/24/22 23:34) fluoxetine Allergy (Verified 06/24/22 23:34) hydroxychloroquine Allergy (Verified 06/24/22 23:34) hydroxyzine Allergy (Verified 06/24/22 23:34) meloxicam Allergy (Verified 06/24/22 23:34) mirtazapine Allergy (Verified 06/24/22 23:34) neomycin Allergy (Verified 06/24/22 23:34) Penicillins Allergy (Verified 06/24/22 23:34) Review of Systems ROS: No change since H&P Vital Signs and I&O's Vital Signs: Temperature 98 F Pulse Rate [Right Brachial] 82 Pulse Rate 113 Respiratory Rate 18 Blood Pressure [Left Arm] 144/84 Blood Pressure [Right Arm] 135/81 Blood Pressure 133/76 O2 Sat by Pulse Oximetry 99 Intake and Output: Intake & Output 06/28/22 06/29/22 06/30/22 07/01/22 11:59 11:59 11:59 11:59 Intake Total 1780 / 1780 990 / 990 3831 / 3831 180 / 180 Balance 1780 / 1780 990 / 990 3831 / 3831 180 / 180 Physical Exam Oriented: Normal, Time, Person and Place Respiratory: Normal Cardiovascular: Normal Auscultation: Bowel Sounds: Normal Tenderness: Normal Psychiatric: Normal Mood Description: Calm Affect: Normal Speech Pattern: Clear and Appropriate Laboratory and Diagnostics Result Diagrams: 06/30/22 06:20 06/30/22 06:20 Labs: 06/24/22 23:40 Blood Blood Culture - Final 06/24/22 23:50 Blood Blood Culture - Final 06/24/22 23:20 Urine,Clean Catch Urine Culture - Final Pseudomonas Aeruginosa Laboratory WBC 5.3 X10^3/uL (3.6-10.0) 06/30/22 06:20 RBC 3.64 X10^6/uL (3.5-5.4) 06/30/22 06:20 Hgb 10.4 g/dL (12.0-16.0) L 06/30/22 06:20 Hct 30.8 % (36.0-47.0) L 06/30/22 06:20 MCV 84.6 fL (80.0-100.0) 06/30/22 06:20 MCH 28.6 pg (27.0-34.0) 06/30/22 06:20 MCHC 33.8 g/dL (33.0-35.0) 06/30/22 06:20 RDW 29.3 % (11.6-16.5) H 06/30/22 06:20 Plt Count 188 X10^3/uL (150.0-450.0) 06/30/22 06:20 Plt Count Comment Adequate (ADEQUATE) 06/30/22 06:20 MPV 7.0 fL (7.4-11.0) L 06/30/22 06:20 Neut % (Auto) 49.1 % (42.0-75.0) 06/30/22 06:20 Lymph % (Auto) 28.6 % (21.0-51.0) 06/30/22 06:20 [place] % (Auto) 21.5 % (0.0-13.0) H 06/30/22 06:20 Eos % (Auto) 0.0 % (0.9-2.9) L 06/30/22 06:20 Baso % (Auto) 0.8 % (0.2-1.0) 06/30/22 06:20 Neut # (Auto) 2.6 x10^3/uL (2.2-4.8) 06/30/22 06:20 Lymph # (Auto) 1.5 X10^3/uL (1.3-2.9) 06/30/22 06:20 [place] # (Auto) 1.1 x10^3/uL (0.3-0.8) H 06/30/22 06:20 Eos # (Auto) 0.0 x10^3/uL (0.0-0.2) 06/30/22 06:20 Baso # (Auto) 0.0 X10^3/uL (0.0-0.1) 06/30/22 06:20 Absolute Nucleated RBC 0.1 /100WBC 06/30/22 06:20 Total Counted 100 06/30/22 06:20 Neutrophils % (Manual) 62 % (39-76) 06/30/22 06:20 Band Neutrophils % 1 % (0-10) 06/27/22 05:23 Lymphocytes % (Manual) 25 % (13-43) 06/30/22 06:20 Monocytes % (Manual) 12 % (4-9) H 06/30/22 06:20 Eosinophils % (Manual) 1 % (0-6) 06/30/22 06:20 Plt Morphology Comment Normal (NORMAL) 06/30/22 06:20 RBC Morphology Abnormal (NORMAL) A 06/30/22 06:20 Dimorphic RBCs Present 06/29/22 05:41 Hypochromasia Slight A 06/24/22 23:40 Poikilocytosis 1+ A 06/30/22 06:20 Anisocytosis 3+ A 06/30/22 06:20 Target Cells 1+ A 06/30/22 06:20 Ovalocytes Slight A 06/30/22 06:20 Will Cells 1+ A 06/30/22 06:20 Acanthocytes (Spur) 1+ 06/30/22 06:20 Schistocytes Slight A 06/30/22 06:20 Sodium 138 mmol/L (136-145) 06/30/22 06:20 Corrected Sodium TNP 06/30/22 06:20 Potassium 4.0 mmol/L (3.5-5.1) 06/30/22 06:20 Chloride 107 mmol/L (98-107) 06/30/22 06:20 Carbon Dioxide 22.5 mmol/L (21-32) 06/30/22 06:20 BUN 7 mg/dL (7-18) 06/30/22 06:20 Creatinine 0.67 mg/dL (0.55-1.02) 06/30/22 06:20 Est GFR (MDRD) Af Amer > 60 (>60) 06/30/22 06:20 Est GFR (MDRD) Non-Af > 60 (>60) 06/30/22 06:20 Glucose 88 mg/dL (65-99) 06/30/22 06:20 Lactic Acid 0.9 mmol/L (0.4-2.0) 06/24/22 23:40 Calcium 7.2 mg/dL (8.5-10.1) L 06/30/22 06:20 Corrected Calcium 9.0 mg/dL (8.5-10.1) 06/30/22 06:20 Iron 27 ug/dL (50-175) L 06/25/22 00:00 Transferrin 145 mg/dL (202-364) L 06/25/22 00:00 Ferritin 151 ng/mL (8-252) 06/25/22 00:00 Total Bilirubin 0.30 mg/dL (0.2-1.0) 06/30/22 06:20 AST 37 Units/L (15-37) 06/30/22 06:20 ALT 24 Units/L (12-78) 06/30/22 06:20 Alkaline Phosphatase 143 Units/L (46-116) H 06/30/22 06:20 Total Protein 4.7 g/dL (6.4-8.2) L 06/30/22 06:20 Albumin 1.7 g/dL (3.4-5.0) L 06/30/22 06:20 Globulin 3.0 g/dL (2.5-4.5) 06/30/22 06:20 Albumin/Globulin Ratio 0.6 Ratio (1.1-2.1) L 06/30/22 06:20 Vitamin B12 1408 pg/mL (193-986) H 06/25/22 00:00 Folate 5.4 ng/mL (>8.6) L 06/25/22 00:00 TSH 3rd Generation 1.733 uIU/mL (0.358-3.74) 06/24/22 23:50 Specimen Type Clean catch urine 06/24/22 23:20 Urine Color Yellow (YELLOW) 06/24/22 23:20 Urine Appearance Clear (CLEAR) 06/24/22 23:20 Urine pH 6.0 (5.0 - 8.0) 06/24/22 23:20 Ur Specific [place] 1.015 (1.000-1.030) 06/24/22 23:20 Urine Protein 2+ (NEGATIVE) 06/24/22 23:20 Urine Glucose (UA) Negative (NEGATIVE) 06/24/22 23:20 Urine Ketones Negative (NEGATIVE) 06/24/22 23:20 Urine Blood 3+ (NEGATIVE) 06/24/22 23:20 Urine Nitrite Negative (NEGATIVE) 06/24/22 23:20 Urine Bilirubin 1+ (NEGATIVE) 06/24/22 23:20 Urine Urobilinogen Normal (NORMAL) 06/24/22 23:20 Ur Leukocyte Esterase 2+ (NEGATIVE) 06/24/22 23:20 Urine RBC 5-10 /HPF (0-3) A 06/24/22 23:20 Urine WBC 30-50 /HPF (0-5) A 06/24/22 23:20 Ur Squamous Epith Cells Few /HPF (NEGATIVE) 06/24/22 23:20 Urine Bacteria 1+ /HPF (NEGATIVE) 06/24/22 23:20 Ur Culture Indicated? Yes/culture set up 06/24/22 23:20 Tobramycin Peak 1.7 ug/mL (4-8) L 06/29/22 08:18 Tobramycin Trough 2.3 ug/mL (0-2) H* 06/29/22 05:41 Blood Type O POSITIVE 06/25/22 06:48 Antibody Screen Negative 06/25/22 06:48 Crossmatch See Detail 06/25/22 06:48 Plan (1) Acute UTI: Status: Acute Narrative Support Text: Patient grew out multidrug-resistant Pseudomonas aeruginosa and is currently being treated with IV meropenem and tobramycin Plan: Continue IV meropenem and IV tobramycin. (2) Muscle soreness: Status: Acute Plan: Tizanidine 4 mg at bedtime
[2022-06-30] MEDS: ZANAFLEX PO SCH (20:42)
[2022-06-30] MEDS: MIRAPEX TAB 0.25 MG PO SCH (20:42)
[2022-06-30] MEDS: ZOCOR TAB 10 MG PO SCH (20:44)
[2022-06-30] MEDS: ZOFRAN INJ 4 MG VIAL IVP PRN (20:46)
[2022-06-30] MEDS ORDERED: NS 100 ML IV 100 ML ONE (22:19)
[2022-07-01 05:24] LABS: BASOPHILS % (AUTO) 0.7 % (0.2-1.0); HEMATOCRIT 30.8 % (36.0-47.0); HEMOGLOBIN 10.6 g/dL (12.0-16.0); LYMPHOCYTES # (AUTO) 1.4 X10^3/uL (1.3-2.9); MEAN CORPUSCULAR HEMOGLOBIN 28.9 pg (27.0-34.0); MEAN CORPUSCULAR HGB CONC 34.3 g/dL (33.0-35.0); MEAN CORPUSCULAR VOLUME 84.4 fL (80.0-100.0); MEAN PLATELET VOLUME 7.4 fL (7.4-11.0); MONOCYTES # (AUTO) 1.1 x10^3/uL (0.3-0.8); MONOCYTES % (AUTO) 21.5 % (0.0-13.0); NEUTROPHILS # (AUTO) 2.4 x10^3/uL (2.2-4.8); NEUTROPHILS % (AUTO) 48.8 % (42.0-75.0); RED BLOOD COUNT 3.66 X10^6/uL (3.5-5.4); RED CELL DISTRIBUTION WIDTH 29.7 % (11.6-16.5); WHITE BLOOD COUNT 4.9 X10^3/uL (3.6-10.0)
[2022-07-01 05:31] LABS: ALANINE AMINOTRANSFERASE 26 Units/L (12-78); ALBUMIN 1.8 g/dL (3.4-5.0); ALKALINE PHOSPHATASE 159 Units/L (46-116); ASPARTATE AMINO TRANSFERASE 37 Units/L (15-37); BLOOD UREA NITROGEN 8 mg/dL (7-18); CALCIUM 7.4 mg/dL (8.5-10.1); CARBON DIOXIDE 24.7 mmol/L (21-32); CHLORIDE 107 mmol/L (98-107); COR CA(FOR HYPOALB) 9.2 mg/dL (8.5-10.1); CREATININE 0.63 mg/dL (0.55-1.02); SODIUM 138 mmol/L (136-145); TOTAL PROTEIN 4.9 g/dL (6.4-8.2); eGFR NON BLACK RACES > 60 (>60)
[2022-07-01] MEDS ORDERED: MICRO K EXTEN CAP 10 MEQ PO PRN (05:49)
[2022-07-01] MEDS ORDERED: K-RIDER 10 MEQ/NS 100 ML 10 MEQ/100 ML BAG IV PRN (05:49)
[2022-07-01] MEDS ORDERED: K-DUR TAB 20 MEQ PO PRN (05:49)
[2022-07-01] MEDS ORDERED: POTASSIUM CHLORIDE LIQ 20 MEQ UDC PO PRN (05:49)
[2022-07-01] MEDS ORDERED: POTASSIUM CHL 60 MEQ/NS 0.45% 500 ML IV PRN (05:49)
[2022-07-01] MEDS ORDERED: POTASSIUM CHL 40 MEQ/NS 0.45% 500 ML IV PRN (05:49)
[2022-07-01] MEDS ORDERED: KLOR-CON PO PRN (05:49)
[2022-07-01 06:07] LABS: BAND NEUTROPHILS % 3 % (0-10); BASOPHILS % (MANUAL) 1 % (0-1); MYELOCYTES % 1; PLATELET MORPHOLOGY COMMENT NORMAL (NORMAL)
[2022-07-01 06:08] LABS: ANISOCYTOSIS 3+; HYPOCHROMASIA SLIGHT
[2022-07-01 06:10] LABS: POIKILOCYTOSIS 1+; SCHISTOCYTES SLIGHT; TARGET CELLS 1+
[2022-07-01] MEDS: ZOFRAN INJ 4 MG VIAL IVP PRN ×2 (08:48→17:14)
[2022-07-01] MEDS: PROTONIX TAB 40 MG PO SCH ×2 (08:52→21:36)
[2022-07-01] MEDS: TOPROL XL PO SCH (08:52)
[2022-07-01] MEDS: FOLIC ACID TAB 1 MG PO SCH (08:52)
[2022-07-01] MEDS: NYSTATIN SUSP PO SCH ×4 (08:53→21:36)
[2022-07-01] MEDS: PERIACTIN TAB 4 MG PO SCH ×2 (08:53→21:34)
[2022-07-01] MEDS: TOBRAMYCIN SULFATE IV SCH ×2 (09:04→21:36)
[2022-07-01] MEDS: NS IV SCH ×2 (09:04→21:36)
[2022-07-01] MEDS: MERREM VIAL 500 MG in NS 50 ML IV 50 ML IV SCH ×2 (09:11→21:35)
[2022-07-01] MEDS: NORCO 7.5/325 MG TAB PO PRN ×3 (09:30→21:37)
[2022-07-01] MEDS: MAGNESIUM SULFATE 1 GRAM/100 mL PREMIX 1 G/100 ML BAG IV PRN ×4 (14:52→18:38)
[2022-07-01] MEDS: MORPHINE SULFATE INJ 2 MG INJ IVP PRN (15:22)
[2022-07-01] MEDS ORDERED: XYLOCAINE VISCOUS ONE (17:14)
[2022-07-01] MEDS ORDERED: XYLOCAINE VISCOUS MT PRN (17:42)
[2022-07-01] MEDS: ZANAFLEX PO SCH (21:34)
[2022-07-01] MEDS: MIRAPEX TAB 0.25 MG PO SCH (21:34)
[2022-07-01] MEDS: ZOCOR TAB 10 MG PO SCH (21:35)
[2022-07-01] MEDS ORDERED: NS 100 ML IV 100 ML ONE (22:15)
[2022-07-02 05:43] LABS: BASOPHILS % (AUTO) 0.9 % (0.2-1.0); HEMATOCRIT 30.7 % (36.0-47.0); HEMOGLOBIN 10.2 g/dL (12.0-16.0); LYMPHOCYTES # (AUTO) 1.3 X10^3/uL (1.3-2.9); LYMPHOCYTES % (AUTO) 28.1 % (21.0-51.0); MEAN CORPUSCULAR HEMOGLOBIN 28.2 pg (27.0-34.0); MEAN CORPUSCULAR HGB CONC 33.3 g/dL (33.0-35.0); MEAN CORPUSCULAR VOLUME 84.5 fL (80.0-100.0); MEAN PLATELET VOLUME 7.2 fL (7.4-11.0); MONOCYTES # (AUTO) 1.1 x10^3/uL (0.3-0.8); MONOCYTES % (AUTO) 23.1 % (0.0-13.0); NEUTROPHILS # (AUTO) 2.2 x10^3/uL (2.2-4.8); NEUTROPHILS % (AUTO) 47.9 % (42.0-75.0); RED BLOOD COUNT 3.63 X10^6/uL (3.5-5.4); RED CELL DISTRIBUTION WIDTH 29.8 % (11.6-16.5); WHITE BLOOD COUNT 4.6 X10^3/uL (3.6-10.0)
[2022-07-02 05:51] LABS: BLOOD UREA NITROGEN 8 mg/dL (7-18); CALCIUM 7.1 mg/dL (8.5-10.1); CARBON DIOXIDE 23.5 mmol/L (21-32); CHLORIDE 106 mmol/L (98-107); CREATININE 0.79 mg/dL (0.55-1.02); SODIUM 136 mmol/L (136-145); eGFR NON BLACK RACES > 60 (>60)
[2022-07-02 06:08] LABS: ANISOCYTOSIS 3+; HYPOCHROMASIA SLIGHT; METAMYELOCYTES % 2; MYELOCYTES % 1; PLATELET MORPHOLOGY COMMENT NORMAL (NORMAL); POIKILOCYTOSIS 1+; SCHISTOCYTES SLIGHT; SMUDGE CELLS FEW; TARGET CELLS 1+
[2022-07-02 06:27] LABS: MAGNESIUM 2.4 mg/dL (2.0-2.9)
[2022-07-02] MEDS: NORCO 7.5/325 MG TAB PO PRN ×2 (07:58→14:35)
[2022-07-02] MEDS: MERREM VIAL 500 MG in NS 50 ML IV 50 ML IV SCH ×2 (07:59→20:11)
[2022-07-02] MEDS: PERIACTIN TAB 4 MG PO SCH ×2 (08:00→20:10)
[2022-07-02] MEDS: NYSTATIN SUSP PO SCH ×4 (08:01→20:10)
[2022-07-02] MEDS: PROTONIX TAB 40 MG PO SCH ×2 (08:01→20:11)
[2022-07-02] MEDS: FOLIC ACID TAB 1 MG PO SCH (08:01)
[2022-07-02] MEDS: TOPROL XL PO SCH (08:01)
[2022-07-02] MEDS: NS IV SCH ×2 (10:15→20:12)
[2022-07-02] MEDS: TOBRAMYCIN SULFATE IV SCH ×2 (10:15→20:12)
[2022-07-02] MEDS: MORPHINE SULFATE INJ 2 MG INJ IVP PRN ×2 (10:32→20:12)
[2022-07-02] MEDS ORDERED: NS 100 ML IV 100 ML ONE (10:46)
[2022-07-02] MEDS: ZOCOR TAB 10 MG PO SCH (20:11)
[2022-07-02] MEDS: MIRAPEX TAB 0.25 MG PO SCH (20:11)
[2022-07-02] MEDS: ZANAFLEX PO SCH (20:11)
[2022-07-02 22:27] LABS: ALANINE AMINOTRANSFERASE 26 Units/L (12-78); ALBUMIN 1.8 g/dL (3.4-5.0); ALKALINE PHOSPHATASE 163 Units/L (46-116); ASPARTATE AMINO TRANSFERASE 37 Units/L (15-37); COR CA(FOR HYPOALB) 8.9 mg/dL (8.5-10.1); TOTAL PROTEIN 4.7 g/dL (6.4-8.2)
[2022-07-03 06:13] LABS: BASOPHILS % (AUTO) 1.1 % (0.2-1.0); EOSINOPHILS % (AUTO) 0.1 % (0.9-2.9); HEMATOCRIT 31.3 % (36.0-47.0); HEMOGLOBIN 10.6 g/dL (12.0-16.0); LYMPHOCYTES # (AUTO) 1.5 X10^3/uL (1.3-2.9); LYMPHOCYTES % (AUTO) 34.9 % (21.0-51.0); MEAN CORPUSCULAR HEMOGLOBIN 28.9 pg (27.0-34.0); MEAN CORPUSCULAR VOLUME 84.9 fL (80.0-100.0); MEAN PLATELET VOLUME 7.5 fL (7.4-11.0); MONOCYTES # (AUTO) 0.8 x10^3/uL (0.3-0.8); MONOCYTES % (AUTO) 18.7 % (0.0-13.0); NEUTROPHILS # (AUTO) 1.9 x10^3/uL (2.2-4.8); NEUTROPHILS % (AUTO) 45.2 % (42.0-75.0); RED BLOOD COUNT 3.68 X10^6/uL (3.5-5.4); WHITE BLOOD COUNT 4.2 X10^3/uL (3.6-10.0)
[2022-07-03 06:42] LABS: ANISOCYTOSIS 3+; PLATELET MORPHOLOGY COMMENT NORMAL (NORMAL); POIKILOCYTOSIS 1+; SCHISTOCYTES SLIGHT; TARGET CELLS SLIGHT
[2022-07-03] MEDS: MERREM VIAL 500 MG in NS 50 ML IV 50 ML IV SCH ×2 (08:49→20:54)
[2022-07-03] MEDS: PERIACTIN TAB 4 MG PO SCH ×2 (08:49→20:53)
[2022-07-03] MEDS: NYSTATIN SUSP PO SCH ×4 (08:49→20:53)
[2022-07-03] MEDS: FOLIC ACID TAB 1 MG PO SCH (08:49)
[2022-07-03] MEDS: TOPROL XL PO SCH (08:49)
[2022-07-03] MEDS: PROTONIX TAB 40 MG PO SCH ×2 (08:49→20:54)
[2022-07-03] MEDS: MAGIC MOUTHWASH (Orig. Formula) MT SCH ×4 (09:27→20:53)
[2022-07-03] MEDS: TOBRAMYCIN SULFATE IV SCH ×2 (10:10→20:54)
[2022-07-03] MEDS: NS IV SCH ×2 (10:10→20:54)
[2022-07-03] MEDS: MORPHINE SULFATE INJ 2 MG INJ IVP PRN ×2 (10:11→18:01)
--- NOTE | 2022-07-03 11:33 | PCM.PROG ---
Progress Note Progress Note for Day of Date of Exam: 07/03/22 Subjective Subjective: Patient reports she is still feeling a little weak today she had no acute problems yesterday or last night. 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 Her primary care physician Dr. Nicholas will be back tomorrow and resume her treatment. In the meantime we will continue her current treatment. Past Medical Family Social History Allergies: Allergies amlodipine Allergy (Verified 06/24/22 23:34) ceftriaxone Allergy (Verified 06/24/22 23:34) celecoxib [From Celebrex] Allergy (Verified 06/24/22 23:34) citalopram Allergy (Verified 06/24/22 23:34) dexlansoprazole [From Dexilant] Allergy (Verified 06/24/22 23:34) diclofenac Allergy (Verified 06/24/22 23:34) estrogens, conjugated [From Premarin] Allergy (Verified 06/24/22 23:34) fesoterodine [From Toviaz] Allergy (Verified 06/24/22 23:34) fluoxetine Allergy (Verified 06/24/22 23:34) hydroxychloroquine Allergy (Verified 06/24/22 23:34) hydroxyzine Allergy (Verified 06/24/22 23:34) meloxicam Allergy (Verified 06/24/22 23:34) mirtazapine Allergy (Verified 06/24/22 23:34) neomycin Allergy (Verified 06/24/22 23:34) Penicillins Allergy (Verified 06/24/22 23:34) Review of Systems ROS: No change since H&P Vital Signs and I&O's Vital Signs: Temperature 99.8 F Pulse Rate [Right Brachial] 74 Pulse Rate 113 Respiratory Rate 21 Blood Pressure [Left Arm] 131/72 Blood Pressure [Right Arm] 91/50 Blood Pressure 133/76 O2 Sat by Pulse Oximetry 94 Intake and Output: Intake & Output 06/30/22 07/01/22 07/02/22 07/03/22 11:59 11:59 11:59 11:59 Intake Total 3831 / 3831 880 / 880 1680 / 1680 1425 / 1425 Balance 3831 / 3831 880 / 880 1680 / 1680 1425 / 1425 Physical Exam Oriented: Normal, Time, Person and Place Respiratory: Normal Cardiovascular: Normal Auscultation: Bowel Sounds: Normal Tenderness: Normal Psychiatric: Normal Mood Description: Calm Affect: Normal Speech Pattern: Clear and Appropriate Laboratory and Diagnostics Result Diagrams: 07/03/22 05:52 07/02/22 05:30 Labs: 06/24/22 23:40 Blood Blood Culture - Final 06/24/22 23:50 Blood Blood Culture - Final 06/24/22 23:20 Urine,Clean Catch Urine Culture - Final Pseudomonas Aeruginosa Laboratory WBC 4.2 X10^3/uL (3.6-10.0) 07/03/22 05:52 RBC 3.68 X10^6/uL (3.5-5.4) 07/03/22 05:52 Hgb 10.6 g/dL (12.0-16.0) L 07/03/22 05:52 Hct 31.3 % (36.0-47.0) L 07/03/22 05:52 MCV 84.9 fL (80.0-100.0) 07/03/22 05:52 MCH 28.9 pg (27.0-34.0) 07/03/22 05:52 MCHC 34.0 g/dL (33.0-35.0) 07/03/22 05:52 RDW 29.0 % (11.6-16.5) H 07/03/22 05:52 Plt Count 214 X10^3/uL (150.0-450.0) 07/03/22 05:52 Plt Count Comment Adequate (ADEQUATE) 07/03/22 05:52 MPV 7.5 fL (7.4-11.0) 07/03/22 05:52 Neut % (Auto) 45.2 % (42.0-75.0) 07/03/22 05:52 Lymph % (Auto) 34.9 % (21.0-51.0) 07/03/22 05:52 [place] % (Auto) 18.7 % (0.0-13.0) H 07/03/22 05:52 Eos % (Auto) 0.1 % (0.9-2.9) L 07/03/22 05:52 Baso % (Auto) 1.1 % (0.2-1.0) H 07/03/22 05:52 Neut # (Auto) 1.9 x10^3/uL (2.2-4.8) L 07/03/22 05:52 Lymph # (Auto) 1.5 X10^3/uL (1.3-2.9) 07/03/22 05:52 [place] # (Auto) 0.8 x10^3/uL (0.3-0.8) 07/03/22 05:52 Eos # (Auto) 0.0 x10^3/uL (0.0-0.2) 07/03/22 05:52 Baso # (Auto) 0.0 X10^3/uL (0.0-0.1) 07/03/22 05:52 Absolute Nucleated RBC 0.2 /100WBC 07/03/22 05:52 Total Counted 100 07/02/22 05:30 Neutrophils % (Manual) 47 % (39-76) 07/02/22 05:30 Band Neutrophils % 3 % (0-10) 07/01/22 04:25 Lymphocytes % (Manual) 29 % (13-43) 07/02/22 05:30 Monocytes % (Manual) 20 % (4-9) H 07/02/22 05:30 Eosinophils % (Manual) 1 % (0-6) 07/02/22 05:30 Basophils % (Manual) 1 % (0-1) 07/01/22 04:25 Metamyelocytes % 2 07/02/22 05:30 Myelocytes % 1 07/02/22 05:30 Smudge Cells Few 07/02/22 05:30 Plt Morphology Comment Normal (NORMAL) 07/03/22 05:52 RBC Morphology Abnormal (NORMAL) A 07/03/22 05:52 Dimorphic RBCs Present 07/03/22 05:52 Hypochromasia Slight A 07/02/22 05:30 Poikilocytosis 1+ A 07/03/22 05:52 Anisocytosis 3+ A 07/03/22 05:52 Target Cells Slight A 07/03/22 05:52 Ovalocytes Slight A 06/30/22 06:20 Will Cells 1+ A 06/30/22 06:20 Acanthocytes (Spur) Slight 07/03/22 05:52 Schistocytes Slight A 07/03/22 05:52 Sodium 136 mmol/L (136-145) 07/02/22 05:30 Corrected Sodium TNP 07/02/22 05:30 Potassium 3.9 mmol/L (3.5-5.1) 07/02/22 05:30 Chloride 106 mmol/L (98-107) 07/02/22 05:30 Carbon Dioxide 23.5 mmol/L (21-32) 07/02/22 05:30 BUN 8 mg/dL (7-18) 07/02/22 05:30 Creatinine 0.79 mg/dL (0.55-1.02) 07/02/22 05:30 Est GFR (MDRD) Af Amer > 60 (>60) 07/02/22 05:30 Est GFR (MDRD) Non-Af > 60 (>60) 07/02/22 05:30 Glucose 100 mg/dL (65-99) H 07/02/22 05:30 Lactic Acid 0.9 mmol/L (0.4-2.0) 06/24/22 23:40 Calcium 7.1 mg/dL (8.5-10.1) L 07/02/22 05:30 Corrected Calcium 8.9 mg/dL (8.5-10.1) 07/02/22 05:30 Magnesium 2.4 mg/dL (2.0-2.9) 07/02/22 05:30 Iron 27 ug/dL (50-175) L 06/25/22 00:00 Transferrin 145 mg/dL (202-364) L 06/25/22 00:00 Ferritin 151 ng/mL (8-252) 06/25/22 00:00 Total Bilirubin 0.30 mg/dL (0.2-1.0) 07/02/22 05:30 AST 37 Units/L (15-37) 07/02/22 05:30 ALT 26 Units/L (12-78) 07/02/22 05:30 Alkaline Phosphatase 163 Units/L (46-116) H 07/02/22 05:30 Total Protein 4.7 g/dL (6.4-8.2) L 07/02/22 05:30 Albumin 1.8 g/dL (3.4-5.0) L 07/02/22 05:30 Globulin 2.9 g/dL (2.5-4.5) 07/02/22 05:30 Albumin/Globulin Ratio 0.6 Ratio (1.1-2.1) L 07/02/22 05:30 Vitamin B12 1408 pg/mL (193-986) H 06/25/22 00:00 Folate 5.4 ng/mL (>8.6) L 06/25/22 00:00 TSH 3rd Generation 1.733 uIU/mL (0.358-3.74) 06/24/22 23:50 Specimen Type Clean catch urine 06/24/22 23:20 Urine Color Yellow (YELLOW) 06/24/22 23:20 Urine Appearance Clear (CLEAR) 06/24/22 23:20 Urine pH 6.0 (5.0 - 8.0) 06/24/22 23:20 Ur Specific [place] 1.015 (1.000-1.030) 06/24/22 23:20 Urine Protein 2+ (NEGATIVE) 06/24/22 23:20 Urine Glucose (UA) Negative (NEGATIVE) 06/24/22 23:20 Urine Ketones Negative (NEGATIVE) 06/24/22 23:20 Urine Blood 3+ (NEGATIVE) 06/24/22 23:20 Urine Nitrite Negative (NEGATIVE) 06/24/22 23:20 Urine Bilirubin 1+ (NEGATIVE) 06/24/22 23:20 Urine Urobilinogen Normal (NORMAL) 06/24/22 23:20 Ur Leukocyte Esterase 2+ (NEGATIVE) 06/24/22 23:20 Urine RBC 5-10 /HPF (0-3) A 06/24/22 23:20 Urine WBC 30-50 /HPF (0-5) A 06/24/22 23:20 Ur Squamous Epith Cells Few /HPF (NEGATIVE) 06/24/22 23:20 Urine Bacteria 1+ /HPF (NEGATIVE) 06/24/22 23:20 Ur Culture Indicated? Yes/culture set up 06/24/22 23:20 Tobramycin Peak 4.5 ug/mL (4-8) 07/01/22 01:00 Tobramycin Trough 2.3 ug/mL (0-2) H* 06/29/22 05:41 Blood Type O POSITIVE 06/25/22 06:48 Antibody Screen Negative 06/25/22 06:48 Crossmatch See Detail 06/25/22 06:48 Plan (1) Acute UTI: Status: Acute Plan: Continue IV meropenem and IV tobramycin. (2) Muscle soreness: Status: Acute Plan: Tizanidine 4 mg at bedtime
[2022-07-03] MEDS: ZOFRAN INJ 4 MG VIAL IVP PRN (12:00)
--- NOTE | 2022-07-03 17:35 | PCM.PROG ---
Progress Note - Progress Note for Day of Date of Exam: 07/02/22 - Subjective Subjective: Ms. Romero is a 67-year-old white female who has been being treated inpatient by Dr. Nicholas for multidrug resistant UTI. She is currently on meropenem and has tolerated it well. The patient's family is at bedside and reports she has just had gradual decline overall, as well as poor appetite and some adult failure to thrive. This morning labs reveal a white count of 4.6, hemoglobin 10.2. BUN and creatinine were stable at 8 and 0.79. On interview this morning, the patient denies any nausea, vomiting, or diarrhea. She reports she has still had some poor appetite, but ate a little bit of grits this morning. The patient denies any chest pain or shortness of breath. On physical examination, the patient is thin and frail, but oriented to self and current situation. No respiratory distress. Bilateral lung bases are mildly diminished. No rales, wheezing, or rhonchi. Heart rate is a regular rate and rhythm. Abdomen is flat, nontender on palpation. Bowel sounds were present x4 quadrants. She has bilateral upper and lower extremity muscle atrophy, but no unilateral edema to the upper and lower extremities. - Past Medical Family Social History Past Med/Fam/Surg Hx: No changes since H&P Allergies: Allergies amlodipine Allergy (Verified 06/24/22 23:34) ceftriaxone Allergy (Verified 06/24/22 23:34) celecoxib [From Celebrex] Allergy (Verified 06/24/22 23:34) citalopram Allergy (Verified 06/24/22 23:34) dexlansoprazole [From Dexilant] Allergy (Verified 06/24/22 23:34) diclofenac Allergy (Verified 06/24/22 23:34) estrogens, conjugated [From Premarin] Allergy (Verified 06/24/22 23:34) fesoterodine [From Toviaz] Allergy (Verified 06/24/22:34) fluoxetine Allergy (Verified 06/24/22:34) hydroxychloroquine Allergy (Verified 06/24/22:34) hydroxyzine Allergy (Verified 06/24/22 23:34) meloxicam Allergy (Verified 06/24/22 23:34) mirtazapine Allergy (Verified 06/24/22 23:34) neomycin Allergy (Verified 06/24/22 23:34) Penicillins Allergy (Verified 06/24/22 23:34) - Review of Systems ROS: No change since H&P - Vital Signs and I&O's Vital Signs: Temperature 100.5 F Pulse Rate [Right Brachial] 77 Pulse Rate 113 Respiratory Rate 20 Blood Pressure [Left Arm] 136/73 Blood Pressure [Right Arm] 91/50 Blood Pressure 133/76 O2 Sat by Pulse Oximetry 98 Intake and Output: Intake & Output 07/01/22 07/02/22 07/03/22 07/04/22 11:59 11:59 11:59 11:59 Intake Total 880 / 880 1680 / 1680 1425 / 1425 1091 / 1091 Balance 880 / 880 1680 / 1680 1425 / 1425 1091 / 1091 - Physical Exam Oriented: Normal, Time, Person, Place Respiratory: Diminished Cardiovascular: Normal Auscultation: Bowel Sounds: Normal Tenderness: Normal Skin: Decreased [place] Musculoskeletal: Back:Lumbar, Motor Deficit (diffuse generalized muscle weakness) Psychiatric: Normal Mood Description: Calm Affect: Normal Speech Pattern: Clear, Appropriate - Laboratory and Diagnostics Result Diagrams: 07/03/22 05:52 07/02/22 05:30 Labs: 06/24/22 23:40 Blood Blood Culture - Final 06/24/22 23:50 Blood Blood Culture - Final 06/24/22 23:20 Urine,Clean Catch Urine Culture - Final Pseudomonas Aeruginosa Laboratory WBC 4.2 X10^3/uL (3.6-10.0) 07/03/22 05:52 RBC 3.68 X10^6/uL (3.5-5.4) 07/03/22 05:52 Hgb 10.6 g/dL (12.0-16.0) L 07/03/22 05:52 Hct 31.3 % (36.0-47.0) L 07/03/22 05:52 MCV 84.9 fL (80.0-100.0) 07/03/22 05:52 MCH 28.9 pg (27.0-34.0) 07/03/22 05:52 MCHC 34.0 g/dL (33.0-35.0) 07/03/22 05:52 RDW 29.0 % (11.6-16.5) H 07/03/22 05:52 Plt Count 214 X10^3/uL (150.0-450.0) 07/03/22 05:52 Plt Count Comment Adequate (ADEQUATE) 07/03/22 05:52 MPV 7.5 fL (7.4-11.0) 07/03/22 05:52 Neut % (Auto) 45.2 % (42.0-75.0) 07/03/22 05:52 Lymph % (Auto) 34.9 % (21.0-51.0) 07/03/22 05:52 [place] % (Auto) 18.7 % (0.0-13.0) H 07/03/22 05:52 Eos % (Auto) 0.1 % (0.9-2.9) L 07/03/22 05:52 Baso % (Auto) 1.1 % (0.2-1.0) H 07/03/22 05:52 Neut # (Auto) 1.9 x10^3/uL (2.2-4.8) L 07/03/22 05:52 Lymph # (Auto) 1.5 X10^3/uL (1.3-2.9) 07/03/22 05:52 [place] # (Auto) 0.8 x10^3/uL (0.3-0.8) 07/03/22 05:52 Eos # (Auto) 0.0 x10^3/uL (0.0-0.2) 07/03/22 05:52 Baso # (Auto) 0.0 X10^3/uL (0.0-0.1) 07/03/22 05:52 Absolute Nucleated RBC 0.2 /100WBC 07/03/22 05:52 Total Counted 100 07/02/22 05:30 Neutrophils % (Manual) 47 % (39-76) 07/02/22 05:30 Band Neutrophils % 3 % (0-10) 07/01/22 04:25 Lymphocytes % (Manual) 29 % (13-43) 07/02/22 05:30 Monocytes % (Manual) 20 % (4-9) H 07/02/22 05:30 Eosinophils % (Manual) 1 % (0-6) 07/02/22 05:30 Basophils % (Manual) 1 % (0-1) 07/01/22 04:25 Metamyelocytes % 2 07/02/22 05:30 Myelocytes % 1 07/02/22 05:30 Smudge Cells Few 07/02/22 05:30 Plt Morphology Comment Normal (NORMAL) 07/03/22 05:52 RBC Morphology Abnormal (NORMAL) A 07/03/22 05:52 Dimorphic RBCs Present 07/03/22 05:52 Hypochromasia Slight A 07/02/22 05:30 Poikilocytosis 1+ A 07/03/22 05:52 Anisocytosis 3+ A 07/03/22 05:52 Target Cells Slight A 07/03/22 05:52 Ovalocytes Slight A 06/30/22 06:20 Will Cells 1+ A 06/30/22 06:20 Acanthocytes (Spur) Slight 07/03/22 05:52 Schistocytes Slight A 07/03/22 05:52 Sodium 136 mmol/L (136-145) 07/02/22 05:30 Corrected Sodium TNP 07/02/22 05:30 Potassium 3.9 mmol/L (3.5-5.1) 07/02/22 05:30 Chloride 106 mmol/L (98-107) 07/02/22 05:30 Carbon Dioxide 23.5 mmol/L (21-32) 07/02/22 05:30 BUN 8 mg/dL (7-18) 07/02/22 05:30 Creatinine 0.79 mg/dL (0.55-1.02) 07/02/22 05:30 Est GFR (MDRD) Af Amer > 60 (>60) 07/02/22 05:30 Est GFR (MDRD) Non-Af > 60 (>60) 07/02/22 05:30 Glucose 100 mg/dL (65-99) H 07/02/22 05:30 Lactic Acid 0.9 mmol/L (0.4-2.0) 06/24/22 23:40 Calcium 7.1 mg/dL (8.5-10.1) L 07/02/22 05:30 Corrected Calcium 8.9 mg/dL (8.5-10.1) 07/02/22 05:30 Magnesium 2.4 mg/dL (2.0-2.9) 07/02/22 05:30 Iron 27 ug/dL (50-175) L 06/25/22 00:00 Transferrin 145 mg/dL (202-364) L 06/25/22 00:00 Ferritin 151 ng/mL (8-252) 06/25/22 00:00 Total Bilirubin 0.30 mg/dL (0.2-1.0) 07/02/22 05:30 AST 37 Units/L (15-37) 07/02/22 05:30 ALT 26 Units/L (12-78) 07/02/22 05:30 Alkaline Phosphatase 163 Units/L (46-116) H 07/02/22 05:30 Total Protein 4.7 g/dL (6.4-8.2) L 07/02/22 05:30 Albumin 1.8 g/dL (3.4-5.0) L 07/02/22 05:30 Globulin 2.9 g/dL (2.5-4.5) 07/02/22 05:30 Albumin/Globulin Ratio 0.6 Ratio (1.1-2.1) L 07/02/22 05:30 Vitamin B12 1408 pg/mL (193-986) H 06/25/22 00:00 Folate 5.4 ng/mL (>8.6) L 06/25/22 00:00 TSH 3rd Generation 1.733 uIU/mL (0.358-3.74) 06/24/22 23:50 Specimen Type Clean catch urine 06/24/22 23:20 Urine Color Yellow (YELLOW) 06/24/22 23:20 Urine Appearance Clear (CLEAR) 06/24/22 23:20 Urine pH 6.0 (5.0 - 8.0) 06/24/22 23:20 Ur Specific [place] 1.015 (1.000-1.030) 06/24/22 23:20 Urine Protein 2+ (NEGATIVE) 06/24/22 23:20 Urine Glucose (UA) Negative (NEGATIVE) 06/24/22 23: Urine Ketones Negative (NEGATIVE) 06/24/22 23: Urine Blood 3+ (NEGATIVE) 06/24/22 23:20 Urine Nitrite Negative (NEGATIVE) 06/24/22 23:20 Urine Bilirubin 1+ (NEGATIVE) 06/24/22 23:20 Urine Urobilinogen Normal (NORMAL) 06/24/22 23:20 Ur Leukocyte Esterase 2+ (NEGATIVE) 06/24/22 23:20 Urine RBC 5-10 /HPF (0-3) A 06/24/22 23:20 Urine WBC 30-50 /HPF (0-5) A 06/24/22 23:20 Ur Squamous Epith Cells Few /HPF (NEGATIVE) 06/24/22 23:20 Urine Bacteria 1+ /HPF (NEGATIVE) 06/24/22 23:20 Ur Culture Indicated? Yes/culture set up 06/24/22 23:20 Tobramycin Peak 4.5 ug/mL (4-8) 07/01/22 01:00 Tobramycin Trough 2.3 ug/mL (0-2) H* 06/29/22 05:41 Blood Type O POSITIVE 06/25/22 06:48 Antibody Screen Negative 06/25/22 06:48 Crossmatch See Detail 06/25/22 06:48 - Plan (1) Acute UTI Status: Acute Plan: Continue IV meropenem and IV tobramycin.
[2022-07-03] MEDS: MIRAPEX TAB 0.25 MG PO SCH (20:53)
[2022-07-03] MEDS: ZANAFLEX PO SCH (20:54)
[2022-07-03] MEDS: ZOCOR TAB 10 MG PO SCH (20:54)
[2022-07-04 06:20] LABS: BASOPHILS # (AUTO) 0.1 X10^3/uL (0.0-0.1); BASOPHILS % (AUTO) 1.1 % (0.2-1.0); EOSINOPHILS % (AUTO) 0.1 % (0.9-2.9); HEMOGLOBIN 9.9 g/dL (12.0-16.0); LYMPHOCYTES # (AUTO) 1.9 X10^3/uL (1.3-2.9); LYMPHOCYTES % (AUTO) 38.3 % (21.0-51.0); MEAN CORPUSCULAR HEMOGLOBIN 28.8 pg (27.0-34.0); MEAN CORPUSCULAR HGB CONC 34.1 g/dL (33.0-35.0); MEAN CORPUSCULAR VOLUME 84.6 fL (80.0-100.0); MEAN PLATELET VOLUME 7.6 fL (7.4-11.0); MONOCYTES # (AUTO) 1.1 x10^3/uL (0.3-0.8); MONOCYTES % (AUTO) 22.9 % (0.0-13.0); NEUTROPHILS # (AUTO) 1.9 x10^3/uL (2.2-4.8); NEUTROPHILS % (AUTO) 37.6 % (42.0-75.0); RED BLOOD COUNT 3.43 X10^6/uL (3.5-5.4); RED CELL DISTRIBUTION WIDTH 29.4 % (11.6-16.5)
[2022-07-04 06:42] LABS: ALANINE AMINOTRANSFERASE 28 Units/L (12-78); ALBUMIN 1.7 g/dL (3.4-5.0); ALKALINE PHOSPHATASE 183 Units/L (46-116); ASPARTATE AMINO TRANSFERASE 54 Units/L (15-37); BLOOD UREA NITROGEN 9 mg/dL (7-18); CALCIUM 7.6 mg/dL (8.5-10.1); CARBON DIOXIDE 24.8 mmol/L (21-32); CHLORIDE 108 mmol/L (98-107); COR CA(FOR HYPOALB) 9.4 mg/dL (8.5-10.1); CREATININE 0.77 mg/dL (0.55-1.02); SODIUM 139 mmol/L (136-145); TOTAL PROTEIN 4.5 g/dL (6.4-8.2); eGFR NON BLACK RACES > 60 (>60)
[2022-07-04 07:21] LABS: ANISOCYTOSIS 3+; PLATELET MORPHOLOGY COMMENT NORMAL (NORMAL); POIKILOCYTOSIS 1+; SCHISTOCYTES SLIGHT; TARGET CELLS 1+
[2022-07-04 07:44] LABS: CREATININE 0.77 mg/dL (0.55-1.02)
[2022-07-04 07:51] LABS: TOBRAMYCIN,TROUGH 2.7 ug/mL (0-2)
[2022-07-04] MEDS ORDERED: PHARMACY COMMENT IV ONE ×2 (08:00→10:00)
[2022-07-04] MEDS: MAGIC MOUTHWASH (Orig. Formula) MT SCH (09:17)
[2022-07-04] MEDS: NYSTATIN SUSP PO SCH (09:17)
[2022-07-04] MEDS: PROTONIX TAB 40 MG PO SCH (09:17)
[2022-07-04] MEDS: PERIACTIN TAB 4 MG PO SCH (09:17)
[2022-07-04] MEDS: FOLIC ACID TAB 1 MG PO SCH (09:17)
[2022-07-04] MEDS: TOPROL XL PO SCH (09:17)
[2022-07-04 10:14] VITALS: BP 128/79
== END 2022-07-04 10:15 | disposition home or self-care (01) | DRG 690 ==
LOC: MED/SURG 22:56 → ER 22:56 → OBSVTOIN 06-25 01:07 → MED/SURG 06-25 01:37
PROVIDERS: ADMIT Obstetrics & Gynecology Obstetrics; ATTEND Obstetrics & Gynecology Obstetrics
DX: R64 Cachexia; M25.512 Pain in left shoulder; B96.5 Pseudomonas (aeruginosa) (mallei) (pseudomallei) as the cause of diseases classified elsewhere; N17.8 Other acute kidney failure; R94.31 Abnormal electrocardiogram [ECG] [EKG]; E78.2 Mixed hyperlipidemia; I10 Essential (primary) hypertension; R62.7 Adult failure to thrive; N39.0 Urinary tract infection, site not specified; M19.90 Unspecified osteoarthritis, unspecified site; K21.9 Gastro-esophageal reflux disease without esophagitis; D63.1 Anemia in chronic kidney disease; N18.4 Chronic kidney disease, stage 4 (severe); E87.1 Hypo-osmolality and hyponatremia; B37.0 Candidal stomatitis; L89.312 Pressure ulcer of right buttock, stage 2; E87.5 Hyperkalemia